=== PATIENT | male | born 1985 | race Caucasian/White ===

== ENCOUNTER 2017-07-16 09:03 | Emergency (ER) | payer MEDICARE, MEDICAID ==
[~2017-07-16] VITALS: Ht 190.5 cm; Wt 109.1 kg
[~2017-07-16 09:03] MED LIST: AUGMENTIN500TAB PO; CLARITIN-D1 TA1 PO; CLARITIN10 M2 PO; CLONAZEPAM1 MG PO; DIVALPROEX500 MG PO; FLAGYL ER750 MG PO; FLONASE NASAL50 MCG; LEVOTHYROXIN50 MCG PO; MULTI VIT PO; PSEUDOEPHEDRINE PO; RISPERDAL1 M1 PO; RISPERDAL1 MG; RISPERDAL1 MG PO; SEROQUEL25 MG PO; TRAZODONE50 MG PO; TRIAZOLAM0.25 MG PO; ZPAK PO; ZYPREXA PO; ZYRTEC-D AL1 OR
[2017-07-16 10:14] VITALS: BP 137/91
== END 2017-07-16 10:18 | disposition home or self-care (01) ==
LOC: ED 09:03
DX: S96.912A Strain of unspecified muscle and tendon at ankle and foot level, left foot, initial encounter (principal); F84.0 Autistic disorder; W17.2XXA Fall into hole, initial encounter; Y92.219 Unspecified school as the place of occurrence of the external cause